=== PATIENT | male | born 1990 | race Caucasian/White ===

== ENCOUNTER 2019-11-07 08:24 | Emergency (ER) | payer BC, OTHER ==
[~2019-11-07] VITALS: Ht 180.3 cm; Wt 96.8 kg
--- OUTSIDE RECORDS SUMMARY | 2019-11-07 08:32 | XMS REPORT ---
Author Isael Maxwell Organization [facility] Address [address] [place] [address] Care Team Providers Care Head Of Acquisitions Name Role Phone ELAINE ASCENCIO Unavailable PROBLEMS Unknown Problems ALLERGIES Substance Reaction Event Type Date Status Penicillin G Sodium rash Drug Allergy Aug, Active ENCOUNTERS Encounter Location Date Diagnosis [facility] [address] [place] [address] Aug, Strain of rhomboid muscle, initial encounter S29.012A IMMUNIZATIONS Vaccine Route Administration Date Status NORFLEX 60 MG/2 ML (UP TO 60 MG) IM Intramuscular August 19, 2018 Administered TORADOL (IM) 60 MG/2ML (UP TO 15 MG) IM Intramuscular August 19, 2018 Administered SOCIAL HISTORY Never Assessed REASON FOR VISIT Hurt back, pt states that he was putting a child in the car and turned and somet radha popped and now he has back pain and rib pressure, james loera PLAN OF CARE Activity Details Follow Up if not improving with PCP or reg follow up Reason: VITAL SIGNS Height 70 in 2018-08-19 Weight 199 lbs 2018-08-19 BMI 28.55 kg/m2 2018-08-19 Blood pressure systolic 116 mmHg 2018-08-19 Blood pressure diastolic 74 mmHg 2018-08-19 MEDICATIONS Medication Instructions Dosage Frequency Start Date End Date Duration S tatus Cyclobenzaprine HCl 10 MG Orally every 8 hours as needed for muscle tightness 1 tablet as needed Aug, 7 days Active Naproxen 500 MG Orally every 12 hrs as needed for pain 1 tablet with food or milk as needed Aug, 15 days Active RESULTS No Results PROCEDURES Procedure Date Ordered Result Body Site NORFLEX 60 MG/2 ML (UP TO 60 MG) August 19, 2018 THER/PROPH/DIAG INJ, SC/IM August 19, 2018 TORADOL (IM) 60 MG/2ML (UP TO 15 MG) August 19, 2018 INSTRUCTIONS MEDICATIONS ADMINISTERED No Known Medications MEDICAL (GENERAL) HISTORY Type Description Date Medical History RA Medical History eczema Surgical History tonsilectomy Surgical History ortho, left knee Hospitalization History surgery
--- OUTSIDE RECORDS SUMMARY | 2019-11-07 08:32 | XMS REPORT | Continuity of Care Document ---
Author Organization Unknown Address Unknown Phone Unavailable Allergies There is no data. Medications There is no data. Problems There is no data. Procedures There is no data. Results There is no data. Encounters ACCT No. Visit Date/Time Discharge Status Pt. Type Provider Facility Loc./Unit Complaint [id number] 08/19/2018 17:40:00 08/19/2018 23:59:5 9 CLS Outpatient [facility]
--- NOTE | 2019-11-07 08:45 | ED General ---
General Chief Complaint: - Urinary Stated Complaint: TESTICULAR/LRQ PAIN; URINARY RETENTION History of Present Illness Date Seen by Provider: November 07, 2019 Time Seen by Provider: 08:45 Initial Comments Patient presenting to emergency department for evaluation of sudden onset right lower quadrant and right testicle pain that occurred approximately 1 hour prior to arrival. He said it was quite intense and then he tried to go and urinate and he was unable to. He denies any fevers chills nausea vomiting dysuria hematuria or penile discharge or prior similar symptoms. Patient recently had a tooth extracted and he is on antibiotics and takes pain medicines. He says his pain is much better now and he is in no obvious distress with normal vital signs. Allergies and Home Medications Allergies Coded Allergies: Penicillins (Verified Allergy, Unknown, 11/07/19) cefaclor (Verified Allergy, Unknown, 11/07/19) Home Medications Hydrocodone/Acetaminophen 1 Each Tablet, 1 EACH PO Q4H PRN for PAIN-SEVERE (8- 10) Prescribed by: KAYLEE KIM on 11/07/19 1023 Ondansetron 4 Mg Tab.rapdis, 4 MG PO TID PRN for NAUSEA/VOMITING-1ST LINE Prescribed by: KAYLEE KIM on 11/07/19 1023 Tamsulosin HCl 0.4 Mg Cap, 0.4 MG PO qhs Prescribed by: KAYLEE KIM on 11/07/19 1023 Patient Home Medication List Home Medication List Reviewed: Yes Review of Systems Review of Systems Constitutional: no symptoms reported EENTM: no symptoms reported Respiratory: no symptoms reported Cardiovascular: no symptoms reported Gastrointestinal: abdominal pain Genitourinary: decreased output Musculoskeletal: no symptoms reported Skin: no symptoms reported Psychiatric/Neurological: No Symptoms Reported All Other Systems Reviewed Negative Unless Noted: Yes Past Jsqszjb-[id number]-Ulpqcd Hx Patient Social History Alcohol Use: Denies Use Recreational Drug Use: No Smoking Status: Never a Smoker 2nd Hand Smoke Exposure: No Recent Foreign Travel: No Contact w/Someone Who Travel: No Recent Hopitalizations: No Physical Abuse: No Sexual Abuse: No Mistreated: No Fear: No Immunizations Up To Date Tetanus Booster (TDap): Unknown Seasonal Allergies Seasonal Allergies: No Past Medical History Surgeries: Yes (Left knee) Orthopedic, Tonsillectomy Respiratory: No Cardiac: No Neurological: No Genitourinary: No Gastrointestinal: No Musculoskeletal: Yes Rheumatoid Arthritis Endocrine: No HEENT: No Cancer: No Psychosocial: No Integumentary: Yes Eczema Blood Disorders: No Physical Exam Vital Signs Vital Signs - First Documented 11/07/19 08:38 Temp 36.9 Pulse 75 Resp 16 B/P (MAP) 123/84 (97) Pulse Ox 93 O2 Delivery Room Air Capillary Refill : Height, Weight, BMI Height: '" Weight: lbs. oz. kg; BMI Method: General Appearance: No Apparent Distress, WD/WN Neck: Supple Respiratory: No Respiratory Distress Cardiovascular: Regular Rate, Rhythm Gastrointestinal: Non Tender, Soft Genital/Rectal: Normal Genital Exam Back: No CVA Tenderness Extremity: Normal Capillary Refill Neurologic/Psychiatric: Alert, Oriented x3 Skin: Warm/Dry Progress/Results/Core Measures Suspected Sepsis SIRS Temperature: Pulse: Respiratory Rate: Laboratory Tests 11/07/19 08:59: White Blood Count 5.6 Blood Pressure / Mean: Laboratory Tests 11/07/19 08:59: Creatinine 1.09, Platelet Count 238, Total Bilirubin 0.4 Results/Orders Lab Results Laboratory Tests Test 11/07/19 08:38 11/07/19 08:59 Range/Units Urine Color YELLOW Urine Clarity SL CLOUDY Urine pH 7.5 5-9 Urine Specific [place] 1.020 1.016-1.022 Urine Protein NEGATIVE NEGATIVE Urine Glucose (UA) NEGATIVE NEGATIVE Urine Ketones NEGATIVE NEGATIVE Urine Nitrite NEGATIVE NEGATIVE Urine Bilirubin NEGATIVE NEGATIVE Urine Urobilinogen 0.2 < = 1.0 MG/DL Urine Leukocyte Esterase NEGATIVE NEGATIVE Urine RBC (Auto) 3+ H NEGATIVE Urine RBC >100 H /HPF Urine WBC RARE /HPF Urine Squamous Epithelial Cells NONE /HPF Urine Crystals /LPF Urine Amorphous Sediment MOD HEATHER PHOSPHATE H /LPF Urine Bacteria NEGATIVE /HPF Urine Casts NONE /LPF Urine Mucus MODERATE H /LPF Urine Culture Indicated NO White Blood Count 5.6 4.3-11.0 10^3/uL Red Blood Count 5.15 4.35-5.85 10^6/uL Hemoglobin 15.3 13.3-17.7 G/DL Hematocrit 45 40-54 % Mean Corpuscular Volume 88 80-99 FL Mean Corpuscular Hemoglobin 30 25-34 PG Mean Corpuscular Hemoglobin Concent 34 32-36 G/DL Red Cell Distribution Width 12.6 10.0-14.5 % Platelet Count 238 130-400 10^3/uL Mean Platelet Volume 11.1 H 7.4-10.4 FL Neutrophils (%) (Auto) 59 42-75 % Lymphocytes (%) (Auto) 30 12-44 % Monocytes (%) (Auto) 9 0-12 % Eosinophils (%) (Auto) 1 0-10 % Basophils (%) (Auto) 1 0-10 % Neutrophils # (Auto) 3.3 1.8-7.8 X 10^3 Lymphocytes # (Auto) 1.7 1.0-4.0 X 10^3 Monocytes # (Auto) 0.5 0.0-1.0 X 10^3 Eosinophils # (Auto) 0.1 0.0-0.3 10^3/uL Basophils # (Auto) 0.1 0.0-0.1 10^3/uL Sodium Level 139 135-145 MMOL/L Potassium Level 4.3 3.6-5.0 MMOL/L Chloride Level 101 98-107 MMOL/L Carbon Dioxide Level 28 21-32 MMOL/L Anion Gap 10 5-14 MMOL/L Blood Urea Nitrogen 18 7-18 MG/DL Creatinine 1.09 0.60-1.30 MG/DL Estimat Glomerular Filtration Rate > 60 BUN/Creatinine Ratio 17 Glucose Level 104 70-105 MG/DL Calcium Level 9.3 8.5-10.1 MG/DL Corrected Calcium 9.1 8.5-10.1 MG/DL Total Bilirubin 0.4 0.1-1.0 MG/DL Aspartate Amino Transf (AST/SGOT) 29 5-34 U/L Alanine Aminotransferase (ALT/SGPT) 41 0-55 U/L Alkaline Phosphatase 84 40-136 U/L Total Protein 7.0 6.4-8.2 GM/DL Albumin 4.3 3.2-4.5 GM/DL My Orders Orders - KAYLEE KIM DO Cbc With Automated Diff (11/07/19 08:49) Comprehensive Metabolic Panel (11/07/19 08:49) Ua Culture If Indicated (11/07/19 08:49) Iv/Invasive Line Insertion .IV start (11/07/19 08:49) Ns Iv 1000 Ml (Sodium Chloride 0.9%) (11/07/19 09:00) Ketorolac Injection (Toradol Injection) (11/07/19 09:00) Ct Abdomen/Pelvis Wo (11/07/19 09:16) Medications Given in ED Current Medications Medications Dose Ordered Sig/Tony Route Start Time Stop Time Status Last Admin Dose Admin Ketorolac Tromethamine 15 mg ONCE ONCE IVP 11/07/19 09:00 11/07/19 09:01 DC 11/07/19 09:05 15 MG Vital Signs/I&O 11/07/19 08:38 Temp 36.9 Pulse 75 Resp 16 B/P (MAP) 123/84 (97) Pulse Ox 93 O2 Delivery Room Air Capillary Refill : Progress Note : Progress Note Patient with distal right 2 mm ureter calculus consistent with history physical exam labs and urinalysis. Patient's pain has been controlled here. I discussed at length what this means and how to treat it. He will go home and attempt a trial a passage gave him information for the local urologist a call to follow-up later this week. I told to take ibuprofen and he will take Mcdaniels for breakthrough pain and Zofran as needed for nausea and Flomax every night. I told him that sex male passed kidney stones pass. Patient will be discharged in stable condition and he verbalized understanding of all instructions. Departure Impression Primary Impression: Ureter colic Disposition: HOME, SELF-CARE Condition: Stable Departure-Patient Inst. Referrals: NO,LOCAL PHYSICIAN (PCP/Family) Primary Care Physician Patient Instructions: Renal Colic (DC) Add. Discharge Instructions: Take 600mg of Ibuprofen every 6 hours. Drink plenty of fluids. Strain your ur ine. Follow with Dr. Friend. [phone] All discharge instructions reviewed with patient and/or family. Voiced understanding. Scripts Tamsulosin HCl (Flomax) 0.4 Mg Cap 0.4 MG PO qhs, #7 CAP Prov: KAYLEE KIM DO 11/07/19 Ondansetron (Ondansetron Odt) 4 Mg Tab.rapdis 4 MG PO TID PRN for NAUSEA/VOMITING-1ST LINE, #10 TAB Prov: KAYLEE KIM DO 11/07/19 Hydrocodone/Acetaminophen (Hydrocodone-Acetamin 5-325 mg) 1 Each Tablet 1 EACH PO Q4H PRN for PAIN-SEVERE (8-10), #14 TAB Prov: KAYLEE KIM DO 11/07/19 KAYLEE KIM DO November 07, 2019 08:45
[2019-11-07] MEDS ORDERED: KETOROLAC 30 MG/ML VIAL IVP ONE (09:00)
[2019-11-07] MEDS ORDERED: NS IV 1000 ML 1,000 ML IV SCH (09:00)
[2019-11-07 09:08] LABS: BACTERIA,URINE NEGATIVE /HPF; BILIRUBIN,URINE NEGATIVE (NEGATIVE); CLARITY,URINE SL CLOUDY; COLOR,URINE YELLOW; GLUCOSE, URINE (UA) NEGATIVE (NEGATIVE); KETONES,URINE NEGATIVE (NEGATIVE); LEUKOCYTE ESTERASE ,URINE NEGATIVE (NEGATIVE); NITRITE,URINE NEGATIVE (NEGATIVE); PH,URINE 7.5 (5-9); PROTEIN,URINE NEGATIVE (NEGATIVE); RBC,URINE >100 /HPF; WBC,URINE RARE /HPF
[2019-11-07 09:09] LABS: AMORPHOUS SEDIMENT,UR MOD AMOR PHOSPHATE /LPF
[2019-11-07 09:11] LABS: HEMATOCRIT 45 % (40-54); HEMOGLOBIN 15.3 G/DL (13.3-17.7); MEAN CORPUSCULAR HEMOGLOBIN 30 PG (25-34); MEAN CORPUSCULAR HGB CONC 34 G/DL (32-36); MEAN CORPUSCULAR VOLUME 88 FL (80-99); WHITE BLOOD COUNT 5.6 10^3/uL (4.3-11.0)
[2019-11-07 09:12] LABS: BASOPHILS % (AUTO) 1 % (0-10); LYMPHOCYTES % (AUTO) 30 % (12-44); MEAN PLATELET VOLUME 11.1 FL (7.4-10.4); MONOCYTES % (AUTO) 9 % (0-12); NEUTROPHILS % (AUTO) 59 % (42-75); PLATELET COUNT 238 10^3/uL (130-400); RED CELL DISTRIBUTION WIDTH 12.6 % (10.0-14.5)
[2019-11-07 09:13] LABS: BASOPHILS # (AUTO) 0.1 10^3/uL (0.0-0.1); EOSINOPHILS # (AUTO) 0.1 10^3/uL (0.0-0.3); EOSINOPHILS % (AUTO) 1 % (0-10); LYMPHOCYTES # (AUTO) 1.7 X 10^3 (1.0-4.0); MONOCYTES # (AUTO) 0.5 X 10^3 (0.0-1.0); NEUTROPHILS # (AUTO) 3.3 X 10^3 (1.8-7.8)
[2019-11-07 09:28] LABS: ALANINE AMINOTRANSFERASE 41 U/L (0-55); ALKALINE PHOSPHATASE 84 U/L (40-136); BILIRUBIN,TOTAL 0.4 MG/DL (0.1-1.0); BUN/CREATININE RATIO 17; CALCIUM 9.3 MG/DL (8.5-10.1); CARBON DIOXIDE 28 MMOL/L (21-32); CHLORIDE 101 MMOL/L (98-107); CREATININE SERUM 1.09 MG/DL (0.60-1.30); GFR ESTIMATED > 60; GLUCOSE 104 MG/DL (70-105); POTASSIUM 4.3 MMOL/L (3.6-5.0); SODIUM 139 MMOL/L (135-145)
[2019-11-07 09:29] LABS: ALBUMIN 4.3 GM/DL (3.2-4.5)
--- NOTE | 2019-11-07 10:06 | Diagnostic Imaging Report ---
PROCEDURE: CT abdomen and pelvis without contrast. TECHNIQUE: Multiple contiguous axial images were obtained through the abdomen and pelvis without the use of intravenous contrast. Auto Exposure Controls were utilized during the CT exam to meet ALARA standards for radiation dose reduction. INDICATION: Right-sided pain. COMPARISON: None. FINDINGS: The heart is unremarkable. The included lung bases are clear. Urolithiasis is seen in the distal right ureter measuring 2 mm with mild right-sided hydroureteronephrosis. No hydronephrosis or renal calculi is seen on the left. The urinary bladder is nondistended and unremarkable. The liver, spleen, pancreas, and adrenal glands have a normal appearance. There is no pathologically enlarged mesenteric or retroperitoneal adenopathy. The bowel loops are nondilated. A moderate amount of stool is seen in the colon. There is no free fluid or free air. The osseous structures are age-appropriate. There is no free air, loculated collection, or adenopathy in the pelvis. IMPRESSION: 1. Urolithiasis in the distal right ureter measuring 2 mm with mild right-sided hydroureteronephrosis. 2. Moderate amount of stool in the colon, which can be seen with constipation. Dictated by: Dictated on workstation # [id number]
[2019-11-07] MEDS ORDERED: TMSL.4C PO (10:23)
[2019-11-07] MEDS ORDERED: HYDR-83 PO (10:23)
[2019-11-07] MEDS ORDERED: ONDA4TAB11 PO (10:23)
[2019-11-07 10:26] VITALS: BP 123/84
== END 2019-11-07 10:26 | disposition home or self-care (01) ==
LOC: EDUNIT# 08:24 → ER FS 08:27
DX: N23 Unspecified renal colic (principal); Z88.0 Allergy status to penicillin; Z88.1 Allergy status to other antibiotic agents
CPT/HCPCS: 36415; 74176; 80053; 81000; 85025